=== PATIENT | female | born 1960 | race Caucasian/White ===

== ENCOUNTER → 2023-04-09 11:18 | Outpatient (CLI) | payer OTHER, SELFPAY ==
--- NOTE | 2023-04-09 11:21 | US_ITS ---
FINAL REPORT CLINICAL HISTORY: bilateral leg pain, ex smoker, pain at rest, claudication FINDINGS: ANKLE/BRACHIAL INDICES FINDINGS: Pressure indices are as follows: RIGHT LOWER EXTREMITY: Ankle brachial pressure index: 1.0 Comments: Normal LEFT LOWER EXTREMITY: Ankle brachial pressure index: 1.1 Comments: Normal IMPRESSION: No evidence of significant obstructive peripheral vascular disease of the lower extremities. Reviewed, Interpreted and Dictated by Gerardo Nunn III, MD Transcribed by Nick Escobar Authenticated and [facility]
== END ==
PROVIDERS: PCP Family Medicine; Visit Provider Physician Assistant
DX: M79.604 Pain in right leg (principal); M79.605 Pain in left leg
CPT/HCPCS: 93923